=== PATIENT | male | born 1970 | race Caucasian/White ===

== ENCOUNTER 2017-09-19 20:06 | Observation (INO) | payer BC, OTHER ==
[2017-09-19] MEDS ORDERED: LEVALBUTEROL 1.25 MG/3 ML NEB ONE (21:01)
[2017-09-19] MEDS ORDERED: NA CHLORIDE 0.9% 1,000 ML ONE ×3 (21:01→22:59)
[2017-09-19 21:07] LABS: Absolute Lymphocytes (CBC) 1.3 K/uL (0.7-4.9); Absolute Monocytes 0.9 K/uL (0.1-1.3); Absolute Neutrophil 11.9 K/uL (1.8-8.0); Basophils % 0.5 % (0-1.3); Eosinophils % 3.9 % (0-4.4); Hematocrit 49.2 % (39.6-49.0); MCH 31.3 pg (27.0-35.0); MCV 90.1 fL (80-100); MPV 9.6 fL (7.6-11.3); Monocytes % 6.2 % (3.3-12.3); RBC Red Blood Cell Count 5.46 M/uL (4.33-5.43)
[2017-09-19 21:12] LABS: Protime INR 1.09
--- NOTE | 2017-09-19 21:31 | RAD REPORT ---
EXAM DESCRIPTION: RAD - Chest Single View - 09/19/2017 9:23 pm CLINICAL HISTORY: Cough;SOB Chest pain. COMPARISON: Chest Pa And Lat (2 Views) dated 03/04/2016; Chest Single View dated 03/04/2016Chest Pa An d Lat (2 Views) dated 03/04/2016; Chest Single View dated 03/04/2016; Extremity Nonvascular Limited corey ed 03/04/2016 FINDINGS: Portable technique limits examination quality. The lungs are grossly clear. The heart is normal in size. No displaced fractures. IMPRESSION: No acute intrathoracic process suspected.
[2017-09-19 21:44] LABS: ALT/SGPT 29 U/L (12-78); AST/SGOT 15 U/L (15-37); Albumin 3.4 g/dL (3.4-5.0); Alkaline Phosphatase 98 U/L (45-117); BUN Blood Urea Nitrogen 12 mg/dL (7-18); Bicarbonate 26 mmol/L (21-32); Bilirubin Direct 0.5 mg/dL (0-0.2); Bilirubin Total 1.7 mg/dL (0.2-1.0); CKMB Creatine Kinase MB < 1.0 ng/mL (0.3-3.6); Creatine Phosphokinase 67 U/L (39-308); Magnesium 1.8 mg/dL (1.8-2.4); Potassium 3.6 mmol/L (3.5-5.1); Protein, Total 6.9 g/dL (6.4-8.2); Sodium Level 131 mmol/L (136-145)
[2017-09-19 21:46] LABS: Glucose Level 496 mg/dL (74-106)
[2017-09-19] MEDS ORDERED: INSULIN -REGULAR HUMAN 50 UNIT/0.5 ML ML ONE (22:07)
--- NOTE | 2017-09-20 00:01 | EDPHYS ---
Physician Documentation [facility] Name: Oz Márquez Age: 47 yrs Sex: Male : 1970 Arrival Date: 09/19/2017 Time: 20:06 Bed 7 Private MD: MARIE PHIPPS ED Physician Miguel Angel Hamm HPI: 09/19 20:53 This 47 yrs old Male presents to ER via Ambulatory with complaints of Cough, cp Congestion. 20:53 The patient or guardian reports cough, that is intermittent, with productive sputum. cp 20:53 Onset: The symptoms/episode began/occurred beginning of the month. Severity of cp symptoms: in the emergency department the symptoms are unchanged, despite home interventions. Associated signs and symptoms: Pertinent negatives: chest pain, diarrhea, fever, vomiting. Historical: - Allergies: 20:19 No Known Allergies; aa1 - Home Meds: 20:19 Januvia 50 mg Oral tab 1 tabs [Active]; metformin 500 mg Oral tab 1 tab 2 times per day aa1 [Active]; - PMHx: 20:19 Diabetes - NIDDM; Hypertension; aa1 - PSHx: 20:19 None; aa1 - Immunization history:: Flu vaccine is up to date. - Social history:: Smoking status: Patient/guardian denies using tobacco. - Ebola Screening: : Patient denies exposure to infectious person Patient denies travel to an Ebola-affected area in the 21 days before illness onset. ROS: 21:00 Constitutional: Negative for body aches, chills, fever, poor PO intake. cp 21:00 Eyes: Negative for injury, pain, redness, and discharge. cp 21:00 ENT: Negative for drainage from ear(s), ear pain, sore throat, difficulty swallowing, difficulty handling secretions. 21:00 Neck: Negative for pain with movement, pain at rest, stiffness, tenderness, bony tenderness. 21:00 Cardiovascular: Negative for chest pain, edema. 21:00 Respiratory: Positive for cough, "sounds productive", shortness of breath, Negative for wheezing. 21:00 Abdomen/GI: Negative for abdominal pain, vomiting, diarrhea, constipation, black/tarry stool, rectal bleeding. 21:00 Back: Negative for pain at rest, pain with movement, radiated pain. 21:00 : Negative for urinary symptoms. 21:00 Skin: Negative for cellulitis, rash. 21:00 Neuro: Negative for altered mental status, headache, numbness, weakness. 21:00 All other systems are negative. Exam: 21:00 ECG was reviewed by the Attending Physician. cp 21:10 Constitutional: The patient appears in no acute distress, alert, awake, cp non-diaphoretic, well developed, well nourished, obese. 21:10 Head/Face: Normocephalic, atraumatic. Eyes: Pupils equal round and reactive to light, cp extra-ocular motions intact. Lids and lashes normal. Conjunctiva and sclera are non-icteric and not injected. Cornea within normal limits. Periorbital areas with no swelling, redness, or edema. ENT: Nares patent. No nasal discharge, no septal abnormalities noted. Tympanic membranes are normal and external auditory canals are clear. Oropharynx with no redness, swelling, or masses, exudates, or evidence of obstruction, uvula midline. Mucous membranes moist. Neck: Trachea midline, no thyromegaly or masses palpated, and no cervical lymphadenopathy. Supple, full range of motion without nuchal rigidity, or vertebral point tenderness. No Meningismus. Chest/axilla: Normal chest wall appearance and motion. Nontender with no deformity. No lesions are appreciated. 21:10 Cardiovascular: Rate: tachycardic, Rhythm: regular, Heart sounds: murmur, not appreciated, rub, not appreciated, gallop, not appreciated, Edema: is not appreciated, JVD: is not appreciated. 21:10 Respiratory: the patient does not display signs of respiratory distress, Respirations: labored breathing, is not present, intercostal retractions, are absent, splinting, is not noted, tachypnea, that is mild, Breath sounds: bronchial sounds, that are moderate, are heard diffusely, stridor, is not appreciated, wheezing: is not appreciated. 21:10 Abdomen/GI: Inspection: obese Bowel sounds: active, all quadrants, Palpation: abdomen is soft and non-tender, in all quadrants, rebound tenderness, is not appreciated. 21:10 Back: pain, is absent, ROM is normal. 21:10 Skin: cellulitis, is not appreciated, no rash present. 21:10 Neuro: Orientation: to person, place \\T\\ time. Mentation: is normal, Cerebellar function: is grossly normal, Motor: moves all fours, strength is normal, Sensation: no obvious gross deficits. Vital Signs: 20:19 BP 164 / 96; Pulse 125; Resp 20; Temp 97.4; Pulse Ox 93% on R/A; Weight 147.42 kg; aa1 Height 6 ft. 1 in. (185.42 cm); Pain 0/10; 20:45 BP 149 / 97; Pulse 113; Resp 18; Pulse Ox 93% on R/A; tl2 21:04 BP 148 / 87; Pulse 114; Resp 30; Pulse Ox 99% on Nebulizer Mask; tl2 22:00 BP 137 / 82; Pulse 115; Resp 30; Pulse Ox 94% on R/A; tl2 22:50 BP 143 / 93; Pulse 115; Resp 24; Pulse Ox 93% on R/A; tl2 09/20 01:36 BP 152 / 99; Pulse 96; Resp 28; Pulse Ox 92% on R/A; tl2 09/19 20:19 Body Mass Index 42.88 (147.42 kg, 185.42 cm) aa1 MDM: 09/19 20:21 Patient medically screened. cp 21:00 Differential Diagnosis: Bronchitis Influenza Upper Respiratory Infection Viral Syndrome cp Pneumonia Other pulmonary embolism. 23:45 Data reviewed: vital signs, nurses notes, lab test result(s), EKG, radiologic studies, cp CT scan, plain films. 23:45 Test interpretation: by ED physician or midlevel provider: ECG, plain radiologic cp studies. 23:47 Physician consultation: Kay Woo MD was called at 23:47, was contacted at 23:47, regarding admission, to the telemetry unit. patient's condition. 09/19 20:47 Order name: Basic Metabolic Panel; Complete Time: 21:51 cp 09/19 23:18 Interpretation: Normal except: NA 131; GLUC 496; GFR 72. cp 09/19 20:47 Order name: CBC with Diff; Complete Time: 21:14 cp 09/19 21:15 Interpretation: Normal except: WBC 14.8; RBC 5.46; HCT 49.2; SANTI% 80.4; LYM% 9.0; NEUT cp A 11.9; EOSA 0.6. 09/19 20:47 Order name: Ckmb; Complete Time: 21:51 cp 09/19 20:47 Order name: CPK; Complete Time: 21:51 cp 09/19 20:47 Order name: LFT's; Complete Time: 21:51 cp 09/19 20:47 Order name: Magnesium; Complete Time: 21:51 cp 09/19 20:47 Order name: PT-INR; Complete Time: 22:10 cp 09/19 20:47 Order name: Ptt, Activated; Complete Time: 22:10 cp 09/19 20:47 Order name: Troponin (emerg Dept Use Only); Complete Time: 21:38 cp 09/19 20:47 Order name: Blood Culture Adult (2) cp 09/19 20:47 Order name: Procalcitonin; Complete Time: 21:51 cp 09/19 20:47 Order name: Lactate; Complete Time: 21:38 cp 09/19 20:47 Order name: Influenza Screen (a \\T\\ B); Complete Time: 21:18 cp 09/19 21:18 Interpretation: Reviewed. 09/19 20:32 Order name: EKG; Complete Time: 20:32 cp 09/19 20:32 Order name: EKG - Nurse/Tech; Complete Time: 20:50 cp 09/19 20:47 Order name: XRAY Chest (1 view); Complete Time: 21:38 cp 09/19 21:38 Interpretation: Report review. 09/19 20:47 Order name: Cardiac monitoring; Complete Time: 20:50 cp 09/19 21:55 Order name: D-Dimer; Complete Time: 22:10 EDMS 09/19 22:10 Order name: CT Chest For PE Angio 09/19 20:47 Order name: IV Saline Lock; Complete Time: 20:50 cp 09/19 20:47 Order name: Labs collected and sent; Complete Time: 20:50 cp 09/19 20:47 Order name: O2 Per Protocol; Complete Time: 20:50 cp 09/19 20:47 Order name: O2 Sat Monitoring; Complete Time: 20:50 cp 09/19 23:18 Order name: Accucheck Blood Glucose; Complete Time: 23:19 cp EC:00 Rate is 116 beats/min. Rhythm is regular. VA interval is normal. QRS interval is cp normal. QT interval is normal. No ST changes noted. Interpreted by me. Reviewed by me. Administered Medications: 21:03 Drug: NS 0.9% 1000 ml Route: IV; Rate: 1 bolus; Site: right antecubital; tl2 23:02 Follow up: IV Status: Completed infusion; IV Intake: 1000ml tl2 21:04 Drug: Xopenex (3) 1.25 mg Route: Inhalation; tl2 21:35 Drug: NS 0.9% 1000 ml Route: IV; Rate: 1 bolus; Site: right antecubital; tl2 23:01 Follow up: IV Status: Completed infusion; IV Intake: 1000ml tl2 21:55 CANCELLED (Physician Discretion): SOLU-Medrol 125 mg IVP once cp 22:11 Drug: Insulin Regular Human 10 units {Co-Signature: aa1 (Fernanda Jaquez RN).} Route: IVP; tl2 Site: right antecubital; 23:01 Follow up: Response: No adverse reaction; Blood sugar is lowered tl2 23:01 Drug: NS 0.9% 1000 ml Route: IV; Rate: 125 ml/hr; Site: right antecubital; tl2 09/20 02:00 Follow up: IV Status: Completed infusion tl2 00:42 Drug: Rocephin - (cefTRIAXone) 2 grams Route: IVPB; Infused Over: 30 mins; Site: right tl2 antecubital; 02:00 Follow up: IV Status: Completed infusion tl2 00:57 Drug: Zithromax 500 mg Route: IVPB; Infused Over: 1 hrs; Site: right antecubital; tl2 02:00 Follow up: IV Status: Completed infusion tl2 01:16 Drug: Motrin 800 mg Route: PO; tl2 02:00 Follow up: Response: No adverse reaction tl2 01:16 Drug: Zofran 4 mg Route: IVP; Site: right antecubital; tl2 02:00 Follow up: Response: No adverse reaction; Nausea is decreased tl2 Point of Care Testing: Blood Glucose: 09/19 22:55 Blood Glucose: 238 mg/dL; tl2 Ranges: Critical Glucose Levels:Adult <50 mg/dl or >400 mg/dl <40 mg/dl or >180 mg/dl Disposition: 09/20/17 00:01 Hospitalization ordered by Kay Woo for Observation. Preliminary diagnosis are Pneumonia due to other specified bacteria, Diabetes mellitus due to underlying condition with hyperglycemia. - Bed requested for Telemetry/MedSurg (observation). - Status is Observation. tl2 - Condition is Stable. - Problem is new. - Symptoms have improved. UTI on Admission? No Addendum: 09/21/2017 13:16 Co-signature as Attending Physician, Miguel Angel Hamm MD Available for consultation at p s1 all times. . Signatures: Dispatcher [employer] EDMS Fernanda Jaquez RN RN aa1 Eddie Iraheta PA PA cp Rosa Parrish RN RN tl2 Miguel Angel Hamm MD MD ps1 Fernanda Jaquez RN aa1 Corrections: (The following items were deleted from the chart) 09/19 21:15 21:15 Normal except: WBC 14.8; RBC 5.46; HCT 49.2; SANTI% 80.4; LYM% 9.0; NEUT A 11.9. cp cp 21:55 21:17 D-DIMER+COAG.LAB.BRZ ordered. EDNM EDNM 21:55 21:55 SOLU-Medrol 125 mg IVP once ordered. [facility] 09/20 00:49 00:01 Hospitalization Ordered by Kay Woo MD for Observation. Preliminary tl2 diagnosis is Pneumonia due to other specified bacteria; Diabetes mellitus due to underlying condition with hyperglycemia. Bed requested for Telemetry/MedSurg (observation). Status is Observation. Condition is Stable. Problem is new. Symptoms have improved. UTI on Admission? No. cp 02:05 00:49 09/20/2017 00:01 Hospitalization Ordered by Kay Woo MD for Observation. tl2 Preliminary diagnosis is Pneumonia due to other specified bacteria; Diabetes mellitus due to underlying condition with hyperglycemia. Bed requested for Telemetry/MedSurg (observation). Status is Observation. Condition is Stable. Problem is new. Symptoms have improved. UTI on Admission? No. tl2
--- NOTE | 2017-09-20 00:01 | ER ---
Nurse's Notes [facility] Name: Oz Márquez Age: 47 yrs Sex: Male : 1970 Arrival Date: 09/19/2017 Time: 20:06 Bed 7 Private MD: MARIE PHIPPS Diagnosis: Pneumonia due to other specified bacteria;Diabetes mellitus due to underlying condition with hyperglycemia Presentation: 09/19 20:17 Presenting complaint: Patient states: cough \T\ congestion x 3 weeks. Was seen by PCP and aa1 given oral abx and inhaler but reports after he finished the medications his symptoms started coming back. Transition of care: patient was not received from another setting of care. Onset of symptoms was August 28, 2017. Risk Assessment: Do you want to hurt yourself or someone else? Patient reports no desire to harm self or others. Initial Sepsis Screen: Does the patient meet any 2 criteria? HR > 90 bpm. Does the patient have a suspected source of infection? Yes: Productive cough/pneumonia. Care prior to arrival: None. 20:17 Method Of Arrival: Ambulatory aa1 20:17 Acuity: IVELISSE 3 aa1 Triage Assessment: 20:19 General: Appears in no apparent distress. comfortable, Behavior is calm, cooperative, aa1 appropriate for age. Pain: Denies pain. Historical: - Allergies: 20:19 No Known Allergies; aa1 - Home Meds: 20:19 Januvia 50 mg Oral tab 1 tabs [Active]; metformin 500 mg Oral tab 1 tab 2 times per day aa1 [Active]; - PMHx: 20:19 Diabetes - NIDDM; Hypertension; aa1 - PSHx: 20:19 None; aa1 - Immunization history:: Flu vaccine is up to date. - Social history:: Smoking status: Patient/guardian denies using tobacco. - Ebola Screening: : Patient denies exposure to infectious person Patient denies travel to an Ebola-affected area in the 21 days before illness onset. Screenin:44 Abuse screen: Denies threats or abuse. Nutritional screening: No deficits noted. tl2 Tuberculosis screening: No symptoms or risk factors identified. Fall Risk None identified. Assessment: 21:04 General: Appears in no apparent distress. uncomfortable, Behavior is calm, cooperative, tl2 appropriate for age. Pain: Denies pain. Neuro: Level of Consciousness is awake, alert, obeys commands, Oriented to person, place, time, situation. Cardiovascular: Denies chest pain, Heart tones S1 S2 present Capillary refill < 3 seconds Rhythm is sinus tachycardia. Respiratory: Reports cough that is productive, Airway is patent Respiratory effort is even, unlabored, Respiratory pattern is tachypnea Breath sounds are clear bilaterally. GI: Reports anorexia, Patient currently denies nausea, vomiting. : No signs and/or symptoms were reported regarding the genitourinary system. Derm: Skin is clammy, Skin is normal, Skin temperature is warm. 22:01 Reassessment: Patient appears in no apparent distress at this time. No changes from tl2 previously documented assessment. Patient and/or family updated on plan of care and expected duration. Pain level reassessed. Patient is alert, oriented x 3, equal unlabored respirations, skin warm/dry/pink. Vital Signs: 20:19 BP 164 / 96; Pulse 125; Resp 20; Temp 97.4; Pulse Ox 93% on R/A; Weight 147.42 kg; aa1 Height 6 ft. 1 in. (185.42 cm); Pain 0/10; 20:45 BP 149 / 97; Pulse 113; Resp 18; Pulse Ox 93% on R/A; tl2 21:04 BP 148 / 87; Pulse 114; Resp 30; Pulse Ox 99% on Nebulizer Mask; tl2 22:00 BP 137 / 82; Pulse 115; Resp 30; Pulse Ox 94% on R/A; tl2 22:50 BP 143 / 93; Pulse 115; Resp 24; Pulse Ox 93% on R/A; tl2 09/20 01:36 BP 152 / 99; Pulse 96; Resp 28; Pulse Ox 92% on R/A; tl2 09/19 20:19 Body Mass Index 42.88 (147.42 kg, 185.42 cm) aa1 Vitals: 09/19 21:04 Cardiac Rhythm Assessment Sinus tach. tl2 ED Course: 20:06 Patient arrived in ED. ds1 20:18 Triage completed. aa1 20:19 Arm band placed on left wrist. Patient placed in an exam room, on a stretcher. aa1 20:21 [facility] cp 20:21 Miguel Angel Hamm MD is Attending Physician. cp 20:21 MARIE PHIPPS is Private Physician. ds1 20:44 Rosa Parrish, AZALIA is Primary Nurse. tl2 20:44 Inserted saline lock: 20 gauge in right antecubital area, using aseptic technique. tl2 Blood collected. 21:04 Patient has correct armband on for positive identification. Placed in gown. Bed in low tl2 position. Call light in reach. Side rails up X 1. Adult w/ patient. 21:23 XRAY Chest (1 view) In Process Unspecified. EDMS 21:45 Notified Nurse Practitioner and/or Physician Door Patcher of a critical lab result(s), fc glucose of 496. 22:08 Notified Nurse Practitioner and/or Physician Door Patcher of a critical lab result(s), fc d-dimer of 837. 22:41 CT completed. Patient tolerated procedure well. Note: pt was told not to take his cw1 metaformin for [address] scan w/contrast. Patient moved back from CT. 22:44 CT Chest For PE Angio In Process Unspecified. EDMS 09/20 00:00 Kay Woo MD is Hospitalizing Provider. cp 01:58 No provider procedures requiring assistance completed. Patient admitted, IV remains in tl2 place. Administered Medications: 09/19 21:03 Drug: NS 0.9% 1000 ml Route: IV; Rate: 1 bolus; Site: right antecubital; tl2 23:02 Follow up: IV Status: Completed infusion; IV Intake: 1000ml tl2 21:04 Drug: Xopenex (3) 1.25 mg Route: Inhalation; tl2 21:35 Drug: NS 0.9% 1000 ml Route: IV; Rate: 1 bolus; Site: right antecubital; tl2 23:01 Follow up: IV Status: Completed infusion; IV Intake: 1000ml tl2 21:55 CANCELLED (Physician Discretion): SOLU-Medrol 125 mg IVP once cp 22:11 Drug: Insulin Regular Human 10 units {Co-Signature: aa1 (Fernanda Jaquez RN).} Route: IVP; tl2 Site: right antecubital; 23:01 Follow up: Response: No adverse reaction; Blood sugar is lowered tl2 23:01 Drug: NS 0.9% 1000 ml Route: IV; Rate: 125 ml/hr; Site: right antecubital; tl2 09/20 02:00 Follow up: IV Status: Completed infusion tl2 00:42 Drug: Rocephin - (cefTRIAXone) 2 grams Route: IVPB; Infused Over: 30 mins; Site: right tl2 antecubital; 02:00 Follow up: IV Status: Completed infusion tl2 00:57 Drug: Zithromax 500 mg Route: IVPB; Infused Over: 1 hrs; Site: right antecubital; tl2 02:00 Follow up: IV Status: Completed infusion tl2 01:16 Drug: Motrin 800 mg Route: PO; tl2 02:00 Follow up: Response: No adverse reaction tl2 01:16 Drug: Zofran 4 mg Route: IVP; Site: right antecubital; tl2 02:00 Follow up: Response: No adverse reaction; Nausea is decreased tl2 Point of Care Testing: Blood Glucose: 09/19 22:55 Blood Glucose: 238 mg/dL; tl2 Ranges: Intake: 23:01 IV: 1000ml; Total: 1000ml. tl2 23:02 IV: 1000ml; Total: 2000ml. tl2 Outcome: 09/20 00:01 Decision to Hospitalize by Provider. cp 01:58 Admitted to Tele accompanied by tech, via wheelchair, room 416, with chart, Report tl2 called to AZALIA Yeung 01:58 Condition: stable 01:58 Discharge instructions given to patient, family, Instructed on the need for admit. 02:05 Patient left the ED. tl2 Signatures: Dispatcher [employer] Fernanda Gan RN RN aa1 Verónica Whittaker RN RN fc Sanford, Demi ds1 Serena Joseph cw1 Eddie Iraheta PA PA cp Knox, Taylor, RN RN tl2 Fernanda Jaquez RN aa1
[2017-09-20] MEDS ORDERED: AZITHROMYCIN 500 MG/250 ML BAG ONE (00:31)
[2017-09-20] MEDS ORDERED: CEFTRIAXONE/SWI 1gm 2 GM/20 ML SYR ONE (00:31)
[2017-09-20] MEDS ORDERED: ONDANSETRON 4 MG/2 ML VIAL IV PRN (00:47)
[2017-09-20] MEDS ORDERED: MAGNESIUM HYDROXIDE 8% 30 ML PO PRN (00:47)
[2017-09-20] MEDS ORDERED: ACETAMINOPHEN 500 MG TAB PO PRN (00:47)
[2017-09-20] MEDS: NA CHLORIDE 0.9% 1,000 ML IV SCH ×2 (01:00→03:09)
[2017-09-20] MEDS ORDERED: ONDANSETRON 4 MG/2 ML VIAL ONE (01:01)
[2017-09-20] MEDS ORDERED: IBUPROFEN 400 MG TAB ONE (01:01)
[2017-09-20] MEDS: ALBUTEROL 2.5 MG/3 ML NEB SOL NEB SCH ×2 (02:38→08:09)
[2017-09-20] MEDS: IPRATROPIUM BROM 0.5MG/2.5ML NEB SCH ×2 (02:38→08:09)
[2017-09-20 03:16] VITALS: BMI 39.8
[2017-09-20 04:20] VITALS: TEMP 97.4
[2017-09-20 04:26] VITALS: BP 152/99
[2017-09-20 05:05] LABS: Absolute Lymphocytes (CBC) 1.4 K/uL (0.7-4.9); Absolute Monocytes 0.8 K/uL (0.1-1.3); Absolute Neutrophil 9.1 K/uL (1.8-8.0); Basophils % 0.5 % (0-1.3); Eosinophils % 4.4 % (0-4.4); Hematocrit 43.5 % (39.6-49.0); MCH 30.9 pg (27.0-35.0); MCV 90.2 fL (80-100); MPV 9.6 fL (7.6-11.3); Monocytes % 6.7 % (3.3-12.3); RBC Red Blood Cell Count 4.83 M/uL (4.33-5.43)
[2017-09-20 05:52] LABS: BUN Blood Urea Nitrogen 10 mg/dL (7-18); Bicarbonate 25 mmol/L (21-32); Glucose Level 271 mg/dL (74-106); Potassium 3.6 mmol/L (3.5-5.1); Sodium Level 138 mmol/L (136-145)
[2017-09-20 06:10] LABS: Magnesium 1.8 mg/dL (1.8-2.4); Phosphorus 3.5 mg/dL (2.5-4.9)
[2017-09-20] MEDS ORDERED: MAGNESIUM SULFATE 1 gm IVPB 1 GM/100 ML BAG IV ONE (08:00)
[2017-09-20] MEDS ORDERED: POTASSIUM 25 MEQ EFFERV TAB PO ONE (08:00)
[2017-09-20] MEDS ORDERED: PNEUMOCOCCAL VACCINE 0.5 ML IMVAC ONE (08:00)
[2017-09-20 08:29] VITALS: O2SAT 92
[2017-09-20] MEDS ORDERED: GLUCAGON 1 MG/VIAL IM PRN (08:44)
[2017-09-20] MEDS ORDERED: D50W 25 GM/50 ML SYRINGE IV PRN (08:44)
[2017-09-20] MEDS ORDERED: INSULIN 70/30 100 UNITS/ML SQ ONE (08:45)
--- NOTE | 2017-09-20 08:53 | P.HP ---
Certification for Inpatient Patient admitted to: Observation Patient will require the following post-hospital care: None Practitioner: I am a practitioner with admitting privileges, knowledge of patient current condition, hospital course, and medical plan of care. Services: Services provided to patient in accordance with Admission requirements found in Title 42 Section 412.3 of the Code of Federal Regulations Patient History Date of Service: 09/20/17 Reason for admission: shortness of breath / fever /cough History of Present Illness: Patient is a 47-year-old gentleman who came into the hospital with worsening respiratory distress. Patient has been having cough, fever, congestion for the last week. He had actually gone to an urgent care facility and received antibiotic therapy. He was also given an inhaler. His clinical symptoms never improved. He actually is feeling worse so he came into the emergency room for further evaluation. His initial chest x-ray did not reveal any abnormality but his CT angio revealed an atypical pneumonia. Patient is not hypoxic however. He will need to be admitted for observation so we can make sure his treatments are on the right path. If his x-rays looking worse than he may need further treatment in hospital. Otherwise, if no significant changes he may be stable for discharge. Allergies No Known Allergies Allergy (Unverified 03/04/16 21:04) Home Medications: Metformin HCl [Metformin HCl ER] 1 tab PO BID 03/05/16 Sitagliptin Phosphate [Januvia] 1 tab PO DAILY 03/05/16 - Past Medical/Surgical History Has patient received pneumonia vaccine in the past: No Diabetic: Yes -: NIDDM -: HTN Past Surgical History: Patient denies surgical history - Family History Mother Medical History: Diabetes - Social History Smoking Status: Never smoker Alcohol use: Yes CD- Drugs: No Caffeine use: Yes Place of Residence: Home Review of Systems 10-point ROS is otherwise unremarkable Physical Examination - Vital Signs Temperature: 97.4 F Blood Pressure: 152/99 Pulse: 96 Respirations: 28 - Physical Exam General: Alert, In no apparent distress, Oriented x3 HEENT: Atraumatic, PERRLA, Mucous membr. moist/pink, EOMI, Sclerae nonicteric Neck: Supple, 2+ carotid pulse no bruit, No LAD, Without JVD or thyroid abnormality Respiratory: Diminished, Rhonchi/gurgles Cardiovascular: Regular rate/rhythm, Normal S1 S2, No murmurs Gastrointestinal: Normal bowel sounds, Soft and benign, Non-distended, No tenderness Musculoskeletal: No clubbing, No swelling, No tenderness Integumentary: No rashes Neurological: Normal gait, Normal speech, Normal strength at 5/5 x4 extr, Normal tone, Sensation intact, Cranial nerves 3-12 intact, Normal affect Lymphatics: No axilla or inguinal lymphadenopathy - Studies Laboratory Data (last 24 hrs) 09/19/17 20:45: PT 12.9 H, INR 1.09, APTT 26.9 09/19/17 20:45: WBC 14.8 H, Hgb 17.1, Hct 49.2 H, Plt Count 244 09/19/17 20:45: Sodium 131 L, Potassium 3.6, BUN 12, Creatinine 1.10, Glucose 496 H*, Magnesium 1.8, Total Bilirubin 1.7 H, AST 15, ALT 29, Alkaline Phosphatase 98 Microbiology Data (last 24 hrs): 09/19/17 20:55 Nasopharnyx Influenza Type A Antigen Screen - Final 09/19/17 20:55 Nasopharnyx Influenza Type B Antigen Screen - Final Assessment & Plan - Problems (Diagnosis) (1) Primary atypical pneumonia (PAP) due to Mycoplasma Current Visit: Yes Status: Acute (2) Hypertension Onset Date: 03/05/16 Current Visit: No Status: Acute (3) Non-insulin dependent type 2 diabetes mellitus Onset Date: 03/05/16 Current Visit: No Status: Acute (4) Leukocytosis Current Visit: Yes Status: Acute - Plan Plan: 1. Continue with IV antibiotics 2. Awaiting sputum and blood culture; procalcitonin level 3. Repeat chest x-ray 4. Continue with nebs as needed 5. O2 per protocol 6. Continue with gentle hydration 7. Repeat labs including CBC and renal function in a.m. 8. Outpt follow-up with Pulmonary 9. GI and DVT prophylaxis - Advance Directives Does patient have a Living Will: No Does patient have a Durable POA for Healthcare: No - Code Status/Comfort Care Code Status Assessed: Yes Code Status: Full Code Critical Care: No Time Spent Managing PTS Care (In Minutes): 50
[2017-09-20] MEDS ORDERED: ENOXAPARIN 40 MG/0.4 ML SQ SCH (09:00)
[2017-09-20] MEDS ORDERED: SITAGLIPTIN PHOS 100 MG TAB PO SCH (09:00)
--- NOTE | 2017-09-20 09:06 | RAD REPORT ---
EXAM DESCRIPTION: CT - Chest For Pe Angio - 09/19/2017 10:44 pm CLINICAL HISTORY: Cough and congestion, shortness of breath, history of recent treatment for pulmon omar infection with antibiotics barium bronchodilator A preliminary written report was provided at the time of the study, and the report was reviewed prio r to final dictation. COMPARISON: Chest films same date TECHNIQUE: Dynamically enhanced 3 mm thick images of the chest were obtained during administration o f approximately 150mL Isovue 370 IV contrast. Coronal and oblique reconstruction images were generate d and reviewed. Exam utilizes a protocol to evaluate the pulmonary arterial tree. All CT scans are performed using dose optimization technique as appropriate and may include automated exposure control or mA/KV adjustment according to patient size. FINDINGS: No pulmonary emboli are identified. Far peripheral branch assessment is limited by motion. No emboli suspected. The aorta as imaged shows no acute or suspicious finding. No pericardial thickening or effusion. No large mass or consolidation. No pneumothorax or pleural effusion. Numerous nodular airspace opacit ies are present in the mid and lower lung cardozo more pronounced on the right. This is not a typical bacterial pneumonia presentation and may represent atypical pneumonia. Fungal infectious process is n ot excluded. In the anterior lower right lung field (image 35/73) there is a 10-11 mm oval nodular density probabl y in the right upper lobe near the minor fissure. A few additional small areas of nodularity are pres ent larger than the background alveolar nodular pattern. These may all be part of the underlying infe ctious process. Noninfectious pulmonary nodules are possible and needs further evaluation after the p atient recovers from the current infectious process. Small mediastinal and hilar lymph nodes are present without calcification. These are most likely reac tive lymph nodes from the infectious process. No suspicious mass or lymphadenopathy. No chest wall ma sses or abnormal axillary lymphadenopathy. IMPRESSION: Right greater than left lower lung field alveolar nodular opacification most likely atyp ical pneumonia. No cavitation, large consolidation or aggressive parenchymal process. Fungal etiology would be possible. Right-sided pulmonary nodularity, larger than the background infectious alveolar opacification, possi esteban noninfectious pulmonary nodules. Re-evaluation in 4-6 weeks is recommended to determine if the no dules resolve following the infectious process medical management. No other significant or suspicious findings.
[2017-09-20 10:43] LABS: Urine Appearance CLEAR; Urine Bilirubin NEGATIVE (NEG); Urine Blood NEGATIVE (NEG); Urine Color DK YELLOW; Urine Glucose 3+ (NEG); Urine Protein NEGATIVE (NEG); Urine Specific Gravity >=1.030 (1.005-1.030); Urine pH 5.5 (5.0-7.0)
[2017-09-20 10:45] LABS: Urine Microscopic Reflex ORDER UMIC
[2017-09-20 10:47] LABS: Urine Bacteria <20 /HPF (NONE SEEN); Urine Culture Reflex Order REFLEXED; Urine RBC <5 /HPF (NONE SEEN)
[2017-09-20] MEDS ORDERED: AZITHROMYCIN IV 500 MG in NA CHLORIDE 0.9% 250 ML IVPB SCH (21:00)
--- NOTE | 2017-09-21 06:55 | EKG ---
Test Date: 2017-09-19 Test Time: 20:55:59 Local Truck Driver: CHARLENE MEASUREMENT RESULTS: Intervals: Rate: 116 IL: 138 QRSD: 90 QT: 324 QTc: 450 Blairs: P: 59 IL: 138 QRS: 51 T: 49 INTERPRETIVE STATEMENTS: Sinus tachycardia Otherwise normal ECG No previous ECG available for comparison Electronically Signed On 09-21-17 06:54:29 CDT by Uzair Mendez
[2017-09-21] MEDS ORDERED: METFORMIN ER 500 MG TAB PO SCH (17:00)
== END 2017-09-20 12:54 | disposition home or self-care (01) ==
LOC: ER 20:06 → ERHOLD 09-20 00:06 → 4TH 09-20 01:04
PROVIDERS: ADMIT Hospitalist; ATTEND Hospitalist
DX: J18.9 Pneumonia, unspecified organism (principal); I10 Essential (primary) hypertension; E11.9 Type 2 diabetes mellitus without complications; D72.829 Elevated white blood cell count, unspecified; Z23 Encounter for immunization
CPT/HCPCS: 36415; 71045; 71275; 80048; 80076; 81003; 81015; 82550; 82553; 82962; 83605; 83735; 84100; 84145; 84484; 85025; 85379; 85610; 85730; 87040; 87086; 87088; 87804; 90670; 93005; 94760; 96361; 96365; 96368; 96375; 99285; G0009; G0378; J0456; J0696; J1650; J2405; J3475; J7030; Q9967

== ENCOUNTER 2019-08-22 16:04 | Emergency (ER) | payer BC ==
--- OUTSIDE RECORDS SUMMARY | 2019-08-22 16:06 | XMS REPORT ---
:1970 Author Organization [facility] t Address [address] [place] [address] Dr. Luevano [address] [place] [id number] Care Team Providers Name Role Phone Unavailable Unavailable Unavailable Problems This patient has no known problems. Allergies, Adverse Reactions, Alerts This patient has no known allergies or adverse reactions. Medications This patient has no known medications. Procedures This patient has no known procedures. Results This patient has no known results.
[2019-08-22] MEDS ORDERED: FAMOTIDINE 20 MG TAB ONE (16:40)
[2019-08-22] MEDS ORDERED: predniSONE 20 MG TAB ONE (16:40)
[2019-08-22 16:55] VITALS: BP 156/84; TEMP 98.3; O2SAT 97
--- NOTE | 2019-08-29 12:23 | ER ---
Nurse's Notes [facility] Name: Oz Márquez Age: 48 yrs Sex: Male : 1970 Arrival Date: 08/22/2019 Time: 16:06 Bed 14 Private MD: Diagnosis: Allergic contact dermatitis due to plants, except food Presentation: 08/21 16:11 Chief complaint: Patient states: Got into poison rola a couple days ago. Swelling noted jl7 to right side of face/eye, redness to bilateral forearms. Coronavirus screen: Proceed with normal triage. Ebola Screen: No symptoms or risks identified at this time. Initial Sepsis Screen: Does the patient meet any 2 criteria? No. Patient's initial sepsis screen is negative. Does the patient have a suspected source of infection? No. Patient's initial sepsis screen is negative. Risk Assessment: Do you want to hurt yourself or someone else? Patient reports no desire to harm self or others. Onset of symptoms was August 20, 2019. Care prior to arrival: None. 16:11 Method Of Arrival: Ambulatory jl7 16:11 Acuity: IVELISSE 4 jl7 Triage Assessment: 16:14 General: Appears in no apparent distress. uncomfortable, Behavior is calm, cooperative, jl7 appropriate for age. Pain: Denies pain. Respiratory: Airway is patent Respiratory effort is even, unlabored, Respiratory pattern is regular, symmetrical. Derm:. Derm: Skin is pink, warm \T\ dry. Musculoskeletal: Swelling present in right eye and right taoism. Historical: - Allergies: 16:14 No Known Allergies; jl7 - PMHx: 16:14 Diabetes - NIDDM; Hypertension; jl7 - PSHx: 16:14 None; jl7 - Immunization history:: Adult Immunizations up to date. - Social history:: Smoking status: Patient denies any tobacco usage or history of. Screenin:15 Abuse screen: Denies threats or abuse. Denies injuries from another. Nutritional bp screening: No deficits noted. Tuberculosis screening: No symptoms or risk factors identified. Fall Risk None identified. Assessment: 16:15 General: SEE TRIAGE NOTE. bp 16:41 Reassessment: PT D/C HOME AMBULATORY, DX WITH ALLERGIC REACTION DERMATITIS. bp Respiratory: Airway is patent. Vital Signs: 16:11 BP 156 / 84; Pulse 77; Resp 17 S; Temp 98.3(O); Pulse Ox 97% on R/A; Weight 113.4 kg jl7 (R); Height 6 ft. 1 in. (185.42 cm) (R); Pain 0/10; 16:11 Body Mass Index 32.98 (113.40 kg, 185.42 cm) jl7 ED Course: 16:06 Patient arrived in ED. as 16:13 Jossy Vazquez FNP-C is [facility]. kb 16:13 Antonio Jiménez MD is Attending Physician. kb 16:13 Triage completed. jl7 16:14 Arm band placed on right wrist. jl7 16:15 Patient has correct armband on for positive identification. Bed in low position. Call bp light in reach. Side rails up X2. 16:24 Roberto Denise, RN is Primary Nurse. bp 16:42 No provider procedures requiring assistance completed. Patient did not have IV access bp during this emergency room visit. Administered Medications: 16:30 Drug: Pepcid 20 mg Route: PO; bp 16:39 Follow up: Response: Medication administered at discharge. bp 16:30 Drug: predniSONE 40 mg Route: PO; bp 16:39 Follow up: Response: No adverse reaction bp Outcome: 16:22 Discharge ordered by MD. kb 16:42 Discharged to home ambulatory. bp 16:42 Condition: stable 16:42 Discharge instructions given to patient, Instructed on discharge instructions, follow up and referral plans. medication usage, Demonstrated understanding of instructions, follow-up care, medications, Prescriptions given X 2. 16:43 Patient left the ED. bp Signatures: Jossy Vazquez FNP-C FNP-Maye Chavez Jahala, RN RN jl7 Roberto Denise, RN RN bp Corrections: (The following items were deleted from the chart) 16:15 16:14 General: Appears in no apparent distress. uncomfortable, Behavior is calm, jl7 cooperative, appropriate for age, jl 16:15 16:14 Pain: Denies pain. jl7 jl7
--- NOTE | 2019-08-29 12:23 | EDPHYS ---
Physician Documentation [facility] Name: Oz Márquez Age: 48 yrs Sex: Male : 1970 Arrival Date: 08/22/2019 Time: 16:06 Bed 14 Private MD: ED Physician Antonio Jiménez HPI: 08/21 16:20 This 48 yrs old Male presents to ER via Ambulatory with complaints of Rash - kb poison elsy, Facial Swelling. 16:20 The patient's rash thought to be caused by Contact allergy. The rash is located on the kb left arm and right arm and face. The rash can be described as papular. Onset: The symptoms/episode began/occurred 2 day(s) ago. Associated signs and symptoms: Pertinent positives: itching. Severity of symptoms: At their worst the symptoms were moderate in the emergency department the symptoms are unchanged. The patient has experienced similar episodes in the past, several times. The patient has not recently seen a physician. Pt reports he got into poison elsy and developed a rash that is getting worse and spreading. Historical: - Allergies: 16:14 No Known Allergies; jl7 - PMHx: 16:14 Diabetes - NIDDM; Hypertension; jl7 - PSHx: 16:14 None; jl7 - Immunization history:: Adult Immunizations up to date. - Social history:: Smoking status: Patient denies any tobacco usage or history of. ROS: 16:19 Constitutional: Negative for fever, chills, and weight loss, Cardiovascular: Negative kb for chest pain, palpitations, and edema, Respiratory: Negative for shortness of breath, cough, wheezing, and pleuritic chest pain, Abdomen/GI: Negative for abdominal pain, nausea, vomiting, diarrhea, and constipation, Back: Negative for injury and pain, MS/Extremity: Negative for injury and deformity, Neuro: Negative for headache, weakness, numbness, tingling, and seizure. 16:19 Skin: Positive for rash, swelling, of the face, right arm and left arm. Exam: 16:19 Constitutional: This is a well developed, well nourished patient who is awake, alert, kb and in no acute distress. Head/Face: Normocephalic, atraumatic. Eyes: Pupils equal round and reactive to light, extra-ocular motions intact. Lids and lashes normal. Conjunctiva and sclera are non-icteric and not injected. Cornea within normal limits. Periorbital areas with no swelling, redness, or edema. Chest/axilla: Normal chest wall appearance and motion. Nontender with no deformity. No lesions are appreciated. Cardiovascular: Regular rate and rhythm with a normal S1 and S2. No gallops, murmurs, or rubs. Normal PMI, no JVD. No pulse deficits. Respiratory: Lungs have equal breath sounds bilaterally, clear to auscultation and percussion. No rales, rhonchi or wheezes noted. No increased work of breathing, no retractions or nasal flaring. Abdomen/GI: Soft, non-tender, with normal bowel sounds. No distension or tympany. No guarding or rebound. No evidence of tenderness throughout. MS/ Extremity: Pulses equal, no cyanosis. Neurovascular intact. Full, normal range of motion. Neuro: Awake and alert, GCS 15, oriented to person, place, time, and situation. Cranial nerves II-XII grossly intact. Motor strength 5/5 in all extremities. Sensory grossly intact. Cerebellar exam normal. Normal gait. 16:19 Skin: rash a moderate rash is noted, consistent with contact dermatitis, on the left arm and right arm and face. Vital Signs: 16:11 BP 156 / 84; Pulse 77; Resp 17 S; Temp 98.3(O); Pulse Ox 97% on R/A; Weight 113.4 kg jl7 (R); Height 6 ft. 1 in. (185.42 cm) (R); Pain 0/10; 16:11 Body Mass Index 32.98 (113.40 kg, 185.42 cm) jl7 MDM: 16:16 Patient medically screened. kb 16:19 Data reviewed: vital signs, nurses notes. Data interpreted: Pulse oximetry: on room air kb is 97 %. Interpretation: normal. Counseling: I had a detailed discussion with the patient and/or guardian regarding: the historical points, exam findings, and any diagnostic results supporting the discharge/admit diagnosis, the need for outpatient follow up, a family practitioner, to return to the emergency department if symptoms worsen or persist or if there are any questions or concerns that arise at home. Administered Medications: 16:30 Drug: Pepcid 20 mg Route: PO; bp 16:39 Follow up: Response: Medication administered at discharge. bp 16:30 Drug: predniSONE 40 mg Route: PO; bp 16:39 Follow up: Response: No adverse reaction bp Disposition: 18:10 Co-signature as Attending Physician, Antonio Jiménez MD. rn Disposition: 08/22/19 16:22 Discharged to Home. Impression: Allergic contact dermatitis due to plants, except food. - Condition is Stable. - Discharge Instructions: Poison Elsy Dermatitis, [id number], Contact Dermatitis, [id number]. - Prescriptions for Pepcid 20 mg Oral Tablet - take 1 tablet by ORAL route every 12 hours for 5 days; 10 tablet. Prednisone 20 mg Oral Tablet - take 1 tablet by ORAL route once daily for 5 days; 5 tablet. - Medication Reconciliation Form, Thank You Letter, Antibiotic Education, Prescription Opioid Use form. - Follow up: Emergency Department; When: As needed; Reason: Worsening of condition. Follow up: Private Physician; When: 2 - 3 days; Reason: Recheck today's complaints, Continuance of care, Re-evaluation by your physician. Signatures: Jossy Vazquez, FINISHING DEPARTMENT SUPERVISOR-C FINISHING DEPARTMENT SUPERVISOR-Ckb Antonio Jiménez MD MD rn Kia Quiroz RN RN jl7 Roberto Denise RN RN bp Corrections: (The following items were deleted from the chart) 16:43 16:22 08/22/2019 16:22 Discharged to Home. Impression: Allergic contact dermatitis due bp to plants, except food. Condition is Stable. Forms are Medication Reconciliation Form, Thank You Letter, Antibiotic Education, Prescription Opioid Use. Follow up: Emergency Department; When: As needed; Reason: Worsening of condition. Follow up: Private Physician; When: 2 - 3 days; Reason: Recheck today's complaints, Continuance of care, Re-evaluation by your physician. kb
== END 2019-08-22 16:43 | disposition home or self-care (01) ==
LOC: ER 16:04
DX: L23.7 Allergic contact dermatitis due to plants, except food (principal); I10 Essential (primary) hypertension
CPT/HCPCS: 99283; J7512